=== PATIENT | male | born 1950 | race Caucasian/White ===

== ENCOUNTER 2017-04-30 12:57 | Outpatient (CLI) | payer MEDICARE ==
[2017-04-30 14:06] LABS: #Eosinphils 0.6 thou/uL (0.0-0.7); #Lymphocytes 1.2 thou/uL (1.20-3.40); #Monocytes 0.3 thou/uL (0.11-0.59); #Neutrophils 3.2 thou/uL (1.40-6.50); %Basophils 0.5 % (0.0-1.0); %Eosinophils 10.4 % (0.0-10.0); %Monocytes 6.3 % (0.0-10.0); %Neutrophils 59.9 % (42.0-75.0); Hemoglobin 12.5 g/dL (14.0-18.0); Mean Corpuscular HGB CONC 33.3 g/dL (32.0-36.0); Mean Corpuscular Hemoglobin 29.9 pg (27.0-31.0); Mean Corpuscular Volume 89.8 fl (80.0-94.0); Mean Platelet Volume 7.6 fL (7.4-10.4); Platelet Count 145 thou/uL (130-400); RBC Distribution Width 12.6 % (11.5-14.5); White Blood Cell (WBC) Count 5.4 thou/uL (4.8-10.8)
[2017-04-30 14:20] LABS: ALT (SGPT) 11 U/L (8-55); AST (SGOT) 20 U/L (5-34); Albumin 3.8 g/dL (3.4-4.8); Alkaline Phosphatase 53 U/L (40-150); Anion Gap 13 mmol/L (10-20); BUN (Urea Nitrogen) 15 mg/dL (8.4-25.7); Bilirubin, Direct 0.4 mg/dL (0.1-0.3); Calc. Creatinine Clearance 0 mL/min (70-130); Calcium 8.6 mg/dL (7.8-10.44); Carbon Dioxide 25 mmol/L (23-31); Cardiac Risk 3.2 (Less than 4.5); Chloride 105 mmol/L (98-107); Cholesterol 105 mg/dl (< 200 Desired); Estimated GFR-MDRD 88; Glucose 80 mg/dL (80-115); HDL Cholesterol 33 mg/dL (>60 Neg Risk); LDL Cholesterol, Calculated 58 mg/dL; Potassium 3.9 mmol/L (3.5-5.1); Protein, Total 5.8 g/dL (5.8-8.1); Sodium 139 mmol/L (136-145); Triglycerides 68 mg/dL (Less than 150)
[2017-04-30 14:44] LABS: Hemoglobin A1c 4.6 % (4.0-6.0)
== END 2017-04-30 12:58 | disposition home or self-care (01) ==
LOC: NAVSJIPCSP 12:57
PROVIDERS: ATTEND Family Medicine
DX: E78.00 Pure hypercholesterolemia, unspecified (principal); I10 Essential (primary) hypertension; D64.9 Anemia, unspecified; Z79.899 Other long term (current) drug therapy
CPT/HCPCS: 36415; 80048; 80061; 80076; 83036; 84443; 85025

== ENCOUNTER 2018-12-30 18:15 | Inpatient (IN) | payer MEDICARE ==
[2018-12-30 18:30] VITALS: BMI 27.1
[2018-12-30] MEDS ORDERED: Ondansetron ODT 4 MG TAB PO PRN (19:00)
[2018-12-30] MEDS ORDERED: Guaifenesin DM 100-10/5 ML UDCUP PO PRN (19:00)
[2018-12-30] MEDS: Atorvastatin Calcium 20 MG TAB PO SCH (20:40)
[2018-12-30] MEDS: Carvedilol 6.25 MG TAB PO SCH (20:40)
[2018-12-30] MEDS: Baclofen 10 MG TAB PO SCH (20:40)
[2018-12-30] MEDS: guaiFENesin ER 600 MG TAB PO SCH (20:40)
[2018-12-30] MEDS: Apixaban 5 MG TAB PO SCH (20:40)
[2018-12-30] MEDS ORDERED: Simvastatin 40 MG TAB PO SCH (21:00)
[2018-12-30 21:16] LABS: Bilirubin Negative (Negative); Blood, Urine Negative (Negative); Clarity Clear (Clear); Glucose, Urine (Dipstick) Negative (Negative); Leukocyte Negative (Negative); Nitrite Negative (Negative); Protein, Urine (Dipstick) Negative (Neg-Trace); Specific Gravity, Urine 1.015 (1.005-1.030); pH, Urine 7.5 (5.0-9.0)
[2018-12-30 21:23] LABS: Bacteria/HPF None Seen HPF (None Seen); RBC/HPF None Seen HPF (0-3); Squamous Epithelial 0-3 HPF (0-3); WBC/HPF None Seen HPF (0-3)
[2018-12-30] MEDS ORDERED: Nystatin Powder 15 GM BOT TOP SCH (21:30)
[2018-12-30] MEDS: Nystatin Powder 15 GM BOT TOP SCH (21:32)
--- NOTE | 2018-12-31 03:17 | HP ---
HISTORY OF PRESENT ILLNESS: Mr. Neves is a 68-year-old white male, who presented to [facility] Emergency Room on 12/23 with extreme weakness. He had a 1-day history of cough and 101.5 temperature. He is admitted to the hospital, found to be septic, started on IV antibiotics. He was seen in conjunction with Cardiology. He was found to not have anything growing in his blood cultures. Started on initially azithromycin. Eventually, he was transferred over to [facility] and has done much better. He has two more days of Levaquin left. This is presumably to treat either pneumonia or urinary tract infection. The patient was stabilized, actually doing much better, but is very weak and was transferred to [facility] for physical therapy and occupational therapy. PAST MEDICAL HISTORY: Significant for multiple medical problems including; 1. 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 2. Coronary artery disease with acute three-vessel disease post CABG. 3. Hypertension. 4. History of postoperative anemia with atrial fibrillation at that time. 5. History of kidney stones. 6. Arthritis. 7. Gastroesophageal reflux disease. 8. Hypercholesterolemia. 9. Hepatitis, twice in his life, type A from dirty pork in high school and type B from seafood in his early 30s. 10. The patient also has a history of GERD. 11. Allergic rhinitis. 12. Edema and skin breakdown in the past. PAST SURGICAL HISTORY: The patient does have a history of herniorrhaphy in 1989. Tonsillectomy and adenoidectomy as a child, heart catheterization, CABG x5 by Dr. Amado in 2008, and vasectomy. FAMILY HISTORY: Positive for the patient's father dying at age 78. He had skin cancer and Alzheimer disease. The patient's mother at age 82, she of CHF and coronary artery disease. The patient has siblings that are alive, but they have dementia, pacemakers. The patient has multiple sons are alive and are healthy. The patient's family history positive for diabetes, heart disease, hypertension, kidney stones, and cancer. MEDICATIONS: Prior home medications revealed the patient presently is on; 1. Plavix 75 mg a day. 2. Carvedilol 12.5 mg twice a day. 3. Digoxin 250 mcg daily. 4. Simvastatin 40 mg daily. 5. Colcrys 0.6 mg once a day. 6. Flomax 0.4 mg once a day. 7. Baclofen 10 mg one with milk or food three times a day p.r.n. 8. Metronidazole lotion p.r.n. 9. Doxycycline 100 mg once a day. 10. Tylenol 325 mg two tablets as needed q.6 hours. 11. Loratadine 10 mg daily. 12. Lotrisone cream p.r.n. 13. MiraLAX daily. 14. Synalar topically twice a day for severe psoriasis. Medicines transferred from [facility] include the following; 1. Tylenol 1000 mg q.6 hours p.r.n. 2. Norvasc 5 mg daily. 3. Eliquis 5 mg b.i.d. 4. Lipitor 20 mg at bedtime. 5. Baclofen 10 mg b.i.d. 6. Carvedilol 12.5 mg b.i.d. 7. Plavix 75 mg daily. 8. Lanoxin 0.25 mg daily. 9. Guaifenesin 600 mg b.i.d. 10. Robitussin DM 15 mL p.r.n. cough. 11. Levaquin 750 mg twice a day for 2 more days. 12. Claritin 10 mg daily. 13. Zofran p.r.n. vomiting. 14. Protonix 40 mg daily. 15. Flomax 0.4 mg daily. SOCIAL HISTORY: Reveals the patient is a nonsmoker and he does not drink any alcohol. 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 He rarely has any caffeine. He does exercise, walks with a walker 3 times a day. ALLERGIES: THE PATIENT IS ALLERGIC TO; 1. GENERIC COLCHICINE. 2. MELOXICAM. 3. ALEVE. 4. ERYTHROMYCIN. 5. REGLAN. 6. BIAXIN. REVIEW OF SYSTEMS: The patient denies any recent fevers, chills, night sweats, or headaches. He does feel weak and fatigued, is unable to get up and walk as well as he has. He denies any change in his eyes or hearing. He denies any significant increased rhinorrhea. He does have occasional dry hacky type cough, is nonproductive. Denies any dyspnea on exertion, chest pain, orthopnea, or claudication. Denies nausea, vomiting, diarrhea, constipation, melena, or hematochezia. Denies any nocturia, urgency, frequency, dysuria, or significant incontinence. Musculoskeletal armenta, he denies any significant joint pains or stiffness, just weakness. He has residual fine movement restrictions ever since his CVA. Denies any heat or cold intolerances at this time. PHYSICAL EXAMINATION: GENERAL: This is a well-developed, well-nourished, rather tall, thin white male, in no apparent distress at this time. HEENT: Normocephalic, nontraumatic cranium. Pupils equally round and reactive. Extraocular movements are intact. Nose and throat are slightly dry. NECK: Supple without masses, nodes, or bruits. CHEST: Clear to auscultation. No rales, rhonchi, wheezes, or cough is heard. HEART: Reveals a regular rate and rhythm at this time. No murmurs, gallops, or rubs are noted. ABDOMEN: Soft, nontender without organomegaly. Normal bowel sounds are noted. No rebound or guarding is noted. : Deferred. EXTREMITIES: Reveal generalized weakness with increased weakness on the right side from the residual CVA. ASSESSMENT: 1. Paroxysmal atrial fibrillation, sinus rhythm now. 2. Pneumonia. 3. BPH. 4. Coronary artery disease. 5. Recent elevated troponin thought to be strain. 6. Gout. 7. Hyperlipidemia. 8. Hypertension. 9. Upper respiratory infection. 10. Gastroesophageal reflux disease. 11. Paroxysmal atrial fibrillation, flutter. 12. Leukopenia. PLAN: 1. The patient was seen by Dr. Weiner, and he recommended discontinuing either the aspirin or the Plavix and continue with one of the other along with Eliquis 5 b.i.d. Continue to monitor the patient's WBC. 2. Continue to monitor the patient's heart rate. 3. We will start with Physical Therapy and Occupational Therapy to increase the patient's strength and stamina. 4. Continue to monitor the patient's blood pressure closely. 5. Monitor the patient for any gout flares. 6. As the patient improves, we will formulate a discharge to home plan. Job ID: [id number]
[2018-12-31 05:24] LABS: #Eosinphils 0.1 thou/uL (0.0-0.7); #Lymphocytes 1.1 thou/uL (1.20-3.40); #Monocytes 0.5 thou/uL (0.11-0.59); #Neutrophils 3.6 thou/uL (1.40-6.50); %Basophils 0.5 % (0.0-1.0); %Eosinophils 1.9 % (0.0-10.0); %Lymphocytes 20.3 % (21.0-51.0); %Monocytes 8.7 % (0.0-10.0); %Neutrophils 68.6 % (42.0-75.0); Hemoglobin 11.2 g/dL (14.0-18.0); Mean Corpuscular HGB CONC 33.9 g/dL (32.0-36.0); Mean Corpuscular Hemoglobin 30.2 pg (27.0-31.0); Mean Platelet Volume 6.8 fL (7.4-10.4); Platelet Count 162 thou/uL (130-400); RBC Distribution Width 12.6 % (11.5-14.5); Red Blood Cell (RBC) Count 3.72 mill/uL (4.70-6.10); White Blood Cell (WBC) Count 5.3 thou/uL (4.8-10.8)
[2018-12-31 05:42] LABS: Digoxin 0.91 ng/mL (0.8-2.0)
[2018-12-31 05:47] LABS: ALT (SGPT) 43 U/L (8-55); AST (SGOT) 40 U/L (5-34); Albumin 3.3 g/dL (3.4-4.8); Alkaline Phosphatase 54 U/L (40-150); Anion Gap 13 mmol/L (10-20); BUN (Urea Nitrogen) 11 mg/dL (8.4-25.7); Bilirubin, Total 0.9 mg/dL (0.2-1.2); Calc. Creatinine Clearance 138 mL/min (70-130); Calcium 9.4 mg/dL (7.8-10.44); Carbon Dioxide 25 mmol/L (23-31); Chloride 102 mmol/L (98-107); Estimated GFR-MDRD Greater than 90; Globulin 2.6 g/dL (2.4-3.5); Glucose 85 mg/dL (80-115); Protein, Total 5.9 g/dL (5.8-8.1); Sodium 136 mmol/L (136-145)
[2018-12-31] MEDS: Amlodipine 5 MG TAB PO SCH (09:02)
[2018-12-31] MEDS: guaiFENesin ER 600 MG TAB PO SCH ×2 (09:03→21:32)
[2018-12-31] MEDS: Clopidogrel Bisulfate 75 MG TAB PO SCH (09:03)
[2018-12-31] MEDS: Baclofen 10 MG TAB PO SCH ×2 (09:03→21:31)
[2018-12-31] MEDS: Loratadine 10 MG TAB PO SCH (09:05)
[2018-12-31] MEDS: Digoxin 0.125 MG TAB PO SCH (09:05)
[2018-12-31] MEDS: Tamsulosin HCl 0.4 MG CAP PO SCH (09:05)
[2018-12-31] MEDS: Carvedilol 6.25 MG TAB PO SCH ×2 (09:06→21:31)
[2018-12-31] MEDS: Apixaban 5 MG TAB PO SCH ×2 (09:06→21:32)
[2018-12-31] MEDS: Acetaminophen 500 MG TAB PO PRN (09:23)
--- NOTE | 2018-12-31 11:35 | PRG ---
DATE OF SERVICE: 12/31/2018 Mr. Neves is a very pleasant 68-year-old white male, who presents to the [facility] on December 23, with extreme weakness. He had a 1-day history of cough and 101.5 temperature. He was found to be septic and started on IV antibiotics. He did have some paroxysmal atrial fibrillation, and was seen in conjunction with Cardiology. He was found to have negative blood cultures. Initially started on azithromycin and later has been transferred to [facility]. He is doing much better, and he has today and tomorrow for those two medications. The patient was treated for pneumonia. He is extremely weak where as he was previously walking with assistance. Now, he is unable to get out of bed. He was transferred to [facility] for physical therapy and occupational therapy. SUBJECTIVE: The patient states he slept well last night, had a good breakfast this morning. States he is still feeling really pretty weak and is not sure how much therapy can do. I told him that they would have any evaluations today to see how well he can do and then progress from there. OBJECTIVE: VITAL SIGNS: Today reveal blood pressure this morning 138/69, pulse 72, respirations 22, O2 saturation 93% on room air, and T-max 97.9. PHYSICAL EXAMINATION: GENERAL: This is a well-developed, well-nourished, very pleasant 68-year-old white male, in no apparent distress at this time. HEENT: Normocephalic and nontraumatic cranium. Pupils are equal, round, reactive. Extraocular movements are intact. Nose and throat are still slightly dry. NECK: Supple without masses, nodes, or bruits. CHEST: Clear to auscultation. No rales, rhonchi, wheezes, or cough is heard. HEART: Reveals a regular rate and rhythm with no murmurs, gallops, or rubs are noted. ABDOMEN: Soft, nontender without organomegaly. Normal bowel sounds are noted in all 4 quadrants. No rebound or guarding is noted. : Deferred. EXTREMITIES: Reveal generalized weakness. The patient continues to have increased weakness on the right side from his residual cerebrovascular accident. ASSESSMENT: 1. Paroxysmal atrial fibrillation, now sinus rhythm this morning. 2. Pneumonia. 3. Benign prostatic hyperplasia. 4. Coronary artery disease. 5. Critical illness myopathy. 6. Recent elevated troponin thought to be strain. 7. Gout. 8. Hyperlipidemia. 9. Hypertension. 10. Upper respiratory tract infection. 11. Gastroesophageal reflux disease. 12. Leukopenia. 13. Generalized weakness. PLAN: 1. We will start the patient on physical therapy, occupational therapy after evaluation today. 2. Continue to monitor the patient's blood pressure closely. 3. Continue the patient's Levaquin for another day until tomorrow. 4. Monitor the patient reflux. 5. Monitor the patient for atrial fibrillation and atrial flutter. 6. Lab work done this morning, presently pending, but was returned as normal. 7. Monitor the patient for any gout flares. 8. Continue with Plavix and Eliquis per Dr. Weiner's recommendation. 9. Physical therapy and occupational therapy. Job ID: [id number]
[2018-12-31] MEDS: Atorvastatin Calcium 20 MG TAB PO SCH (21:32)
[2018-12-31] MEDS: Nystatin Powder 15 GM BOT TOP SCH (21:32)
[2019-01-01] MEDS: Acetaminophen 500 MG TAB PO PRN ×2 (09:13→21:09)
[2019-01-01] MEDS: Clopidogrel Bisulfate 75 MG TAB PO SCH (09:13)
[2019-01-01] MEDS: Apixaban 5 MG TAB PO SCH ×2 (09:13→21:09)
[2019-01-01] MEDS: Amlodipine 5 MG TAB PO SCH (09:13)
[2019-01-01] MEDS: Nystatin Powder 15 GM BOT TOP SCH ×2 (09:13→21:09)
[2019-01-01] MEDS: Digoxin 0.125 MG TAB PO SCH (09:14)
[2019-01-01] MEDS: Carvedilol 6.25 MG TAB PO SCH ×2 (09:14→21:09)
[2019-01-01] MEDS: Baclofen 10 MG TAB PO SCH ×2 (09:14→21:09)
[2019-01-01] MEDS: Loratadine 10 MG TAB PO SCH (09:14)
[2019-01-01] MEDS: Tamsulosin HCl 0.4 MG CAP PO SCH (09:14)
[2019-01-01] MEDS: guaiFENesin ER 600 MG TAB PO SCH ×2 (09:14→21:09)
--- NOTE | 2019-01-01 10:27 | PRG ---
DATE OF SERVICE: 01/01/2019 SUBJECTIVE: Mr. Neves is a very pleasant, 68-year-old white male, who presented to the [facility] ER on December 23 with extreme weakness. He was found to have a temperature of 101.5. He was found to be septic and started on IV antibiotics. He did have some paroxysmal atrial fib along with that, and was seen in conjunction with Cardiology and Infectious Disease. He was found to have negative blood cultures. Initially, he was started on azithromycin, and then, later was transferred over to [facility]. He is finishing his Levaquin today, and he is doing much better. He is still extremely weak and barely able to stand. He states he did stand a little bit yesterday and take a couple of steps. He is eating well, and he is not constipated. OBJECTIVE: VITAL SIGNS: Reveal blood pressure this morning is 138/69, pulse is 73, respirations are 16, O2 saturation is 92% to 96% on room air, and T-max 97.7. GENERAL: This is a well-developed, well-nourished, very tall, but thin 68-year-old white male, in no apparent distress at this time. HEENT: Reveals normocephalic and nontraumatic cranium. Pupils equally round and reactive. Extraocular movements are intact. Nose and throat are still little dry. NECK: Supple without masses, nodes, or bruits. CHEST: Clear to auscultation. No rales. No rhonchi. No wheezes or cough is heard. HEART: Reveals a regular rate and rhythm without murmurs, gallops, or rubs. ABDOMEN: Soft, nontender without organomegaly. Normal bowel sounds are noted in all 4 quadrants. No rebound or guarding is noted. : Deferred. EXTREMITIES: Reveal generalized weakness. The patient does complain of some left ankle pain today, but on inspection, it is not swollen, it is not red, it is not warm, and it is not significantly painful with deep palpation. The patient continues to have some right-sided weakness secondary to his old CVA in 2011. ASSESSMENT: 1. Pneumonia, resolving. 2. Paroxysmal atrial fibrillation, now in sinus rhythm. 3. Benign prostatic hyperplasia. 4. Coronary artery disease. 5. Critical illness myopathy. 6. Recently elevated troponin, thought to be due to cardiac strain. 7. Gout. 8. Hyperlipidemia. 9. Hypertension. 10. Gastroesophageal reflux disease. 11. Leukopenia. 12. Generalized weakness. PLAN: 1. We will continue with his physical therapy to help get him back to his previous strength and stamina. 2. Continue to monitor the patient's blood pressure closely and adjust medications as needed. 3. Today is the patient's last day of Levaquin. We will stop it after his dose today. 4. Continue to monitor the patient for reflux. 5. Continue to monitor the patient's heart rate for AFib and atrial flutter. 6. The patient's lab results are all normal, most likely we will repeat that on Friday. 7. We will monitor the patient for any gout flares. 8. Continue Plavix and Eliquis per Dr. Weiner's recommendation. 9. Continue physical therapy and occupational therapy. Job ID: [id number]
[2019-01-01] MEDS: Atorvastatin Calcium 20 MG TAB PO SCH (21:09)
[2019-01-02] MEDS: Baclofen 10 MG TAB PO SCH ×2 (08:25→21:10)
[2019-01-02] MEDS: Digoxin 0.125 MG TAB PO SCH (08:25)
[2019-01-02] MEDS: Loratadine 10 MG TAB PO SCH (08:25)
[2019-01-02] MEDS: Clopidogrel Bisulfate 75 MG TAB PO SCH (08:26)
[2019-01-02] MEDS: Apixaban 5 MG TAB PO SCH ×2 (08:26→21:10)
[2019-01-02] MEDS: Carvedilol 6.25 MG TAB PO SCH ×2 (08:26→21:11)
[2019-01-02] MEDS: Tamsulosin HCl 0.4 MG CAP PO SCH (08:26)
[2019-01-02] MEDS: guaiFENesin ER 600 MG TAB PO SCH ×2 (08:26→21:10)
[2019-01-02] MEDS: Amlodipine 5 MG TAB PO SCH (08:26)
[2019-01-02] MEDS: Nystatin Powder 15 GM BOT TOP SCH ×2 (08:28→21:11)
[2019-01-02] MEDS: Acetaminophen 500 MG TAB PO PRN ×2 (08:29→16:57)
--- NOTE | 2019-01-02 08:55 | PRG ---
DATE OF SERVICE: 01/02/2019 SUBJECTIVE: Mr. Neves is a very pleasant 68-year-old white male, who presented to the ER at [facility] on December 23 with extreme weakness. He was found to have a temperature of 101.5, and he was septic. He was started on IV antibiotics. While he was ill, he had paroxysmal atrial fibrillation. He was seen in consult with Infectious Disease and Cardiology. He had negative blood cultures and was started on azithromycin initially and that was later transferred over to [facility]. He seems to be doing very well and he feels much better. He is able to walk a little bit, but he typically walks 300+ feet. OBJECTIVE: VITAL SIGNS: Today reveal blood pressure 131/61, pulse 74, respirations 18, O2 saturation of 97% on room air, and T-max 96.7. GENERAL: This is a well-developed, well-nourished, thin white male, in no apparent distress at this time. HEENT: Normocephalic and nontraumatic cranium. Pupils are equally round and reactive. Extraocular movements are intact. Nose and throat are slightly dry. NECK: Supple without masses, nodes, or bruits. CHEST: Clear to auscultation. No rales, rhonchi, wheezes, or cough is heard. HEART: Reveals a regular rate and rhythm without murmurs, gallops, or rubs. ABDOMEN: Soft, nontender without organomegaly. Normal bowel sounds are noted in all 4 quadrants. No rebound or guarding is noted. : Deferred. EXTREMITIES: Reveal no clubbing, cyanosis, or edema. The patient has no ankle pain today. The patient does have continued right-sided weakness secondary to his old CVA. ASSESSMENT: 1. Pneumonia, resolving. 2. Paroxysmal atrial fibrillation, continues in sinus rhythm at this time. 3. Benign prostatic hyperplasia. 4. Coronary artery disease. 5. Critical illness myopathy. 6. Recently elevated troponin thought to be due to cardiac strain. 7. Gout. 8. Hyperlipidemia. 9. Hypertension. 10. Gastroesophageal reflux disease. 11. Leukopenia. 12. Generalized weakness. PLAN: 1. The patient thinks his gout is coming back. We will start him on name brand colchicine 0.6 once a day. 2. Continue to monitor the patient's blood pressure closely and adjust medications. 3. The patient has finished his Levaquin. 4. Continue to monitor the patient for reflux. 5. Continue to monitor the patient's heart rate for atrial fibrillation and rapid ventricular response. 6. Repeat lab on Friday. 7. Monitor the patient for gout flares. 8. Continue Plavix and Eliquis per Dr. Weiner's recommendation. 9. Continue PT and OT. Job ID: [id number]
[2019-01-02] MEDS: Colchicine 0.6 MG TAB PO SCH (09:59)
[2019-01-02] MEDS: Atorvastatin Calcium 20 MG TAB PO SCH (21:10)
[2019-01-03] MEDS: Nystatin Powder 15 GM BOT TOP SCH ×2 (08:57→21:03)
[2019-01-03] MEDS: Loratadine 10 MG TAB PO SCH (08:58)
[2019-01-03] MEDS: Colchicine 0.6 MG TAB PO SCH (08:58)
[2019-01-03] MEDS: Apixaban 5 MG TAB PO SCH ×2 (08:58→21:01)
[2019-01-03] MEDS: guaiFENesin ER 600 MG TAB PO SCH ×2 (08:58→21:01)
[2019-01-03] MEDS: Digoxin 0.125 MG TAB PO SCH (08:58)
[2019-01-03] MEDS: Baclofen 10 MG TAB PO SCH ×2 (08:59→21:01)
[2019-01-03] MEDS: Carvedilol 6.25 MG TAB PO SCH ×2 (08:59→21:02)
[2019-01-03] MEDS: Acetaminophen 500 MG TAB PO PRN ×3 (08:59→21:02)
[2019-01-03] MEDS: Amlodipine 5 MG TAB PO SCH (08:59)
[2019-01-03] MEDS: Tamsulosin HCl 0.4 MG CAP PO SCH (08:59)
[2019-01-03] MEDS: Clopidogrel Bisulfate 75 MG TAB PO SCH (08:59)
--- NOTE | 2019-01-03 10:04 | PRG ---
DATE OF SERVICE: 01/03/2019 SUBJECTIVE: Mr. Neves is a very pleasant 68-year-old white male, who presented to the emergency room at [facility] on December 23, with extreme weakness. He was found to have a temperature of 101.5, and he was noted to be septic. He was started on IV antibiotics. While he was in the hospital, he had paroxysmal atrial fibrillation. He was seen in consultation with Infectious Disease and Cardiology. He had negative blood cultures. He was started on azithromycin initially and then was transferred to [facility]. He was doing very well and was transferred to [facility] for physical therapy and occupational therapy to increase his strength and stamina. OBJECTIVE: VITAL SIGNS: Today reveal his blood pressure this morning was 144/67, pulse 66, respirations 18, O2 saturation 95% on room air, T-max 98.2. GENERAL: This is a well-developed, well-nourished, very pleasant, 68-year-old, white male, in no apparent distress at this time. HEENT: Reveals normocephalic and nontraumatic cranium. The pupils are equally round and reactive. Extraocular movements are intact. Nose and throat are clear. NECK: Supple without masses, nodes, or bruits. CHEST: Clear to auscultation. No rales, rhonchi, or wheezes are heard. HEART: Reveals a regular rate and rhythm without murmurs, gallops, or rubs. ABDOMEN: Soft and nontender without organomegaly. Normal bowel sounds are noted in all 4 quadrants. No rebound or guarding is noted. : Deferred. EXTREMITIES: Reveal no clubbing, cyanosis, or edema. The patient denies any ankle pain this morning. He does continue to have some right-sided weakness secondary to an old CVA. ASSESSMENT: 1. Pneumonia, resolving. 2. Paroxysmal atrial fibrillation, continues in sinus rhythm at this time. 3. BPH. 4. Coronary artery disease. 5. Critical illness myopathy. 6. Recently elevated troponin, thought to be due to cardiac strain. 7. Gout. 8. Hyperlipidemia. 9. Hypertension. 10. Gastroesophageal reflux disease. 11. Leukopenia. 12. Generalized weakness. PLAN: 1. The patient was started back on his name brand colchicine once a day. 2. Continue to monitor the patient's blood pressure closely and adjust medications as needed. 3. The patient will continue on his Levaquin until he is finished. 4. Continue to monitor the patient for reflux. 5. Continue to monitor the patient's heart rate for atrial fibrillation and RVR. 6. Repeat labs on Friday. 7. Monitor the patient for gout flares. 8. Continue Plavix and Eliquis per Dr. Weiner's recommendation. 9. Continue PT and OT. Job ID: [id number]
[2019-01-03] MEDS: Atorvastatin Calcium 20 MG TAB PO SCH (21:01)
[2019-01-04] MEDS: Amlodipine 5 MG TAB PO SCH (08:44)
[2019-01-04] MEDS: Carvedilol 6.25 MG TAB PO SCH ×2 (08:45→20:48)
[2019-01-04] MEDS: Baclofen 10 MG TAB PO SCH ×2 (08:45→20:48)
[2019-01-04] MEDS: Apixaban 5 MG TAB PO SCH ×2 (08:45→20:48)
[2019-01-04] MEDS: Clopidogrel Bisulfate 75 MG TAB PO SCH (08:46)
[2019-01-04] MEDS: guaiFENesin ER 600 MG TAB PO SCH ×2 (08:47→20:48)
[2019-01-04] MEDS: Colchicine 0.6 MG TAB PO SCH (08:47)
[2019-01-04] MEDS: Digoxin 0.125 MG TAB PO SCH (08:47)
[2019-01-04] MEDS: Nystatin Powder 15 GM BOT TOP SCH ×2 (08:48→20:50)
[2019-01-04] MEDS: Tamsulosin HCl 0.4 MG CAP PO SCH (08:48)
[2019-01-04] MEDS: Loratadine 10 MG TAB PO SCH (08:48)
[2019-01-04] MEDS: Acetaminophen 500 MG TAB PO PRN ×2 (08:49→18:27)
[2019-01-04] MEDS ORDERED: traMADol HCl 50 MG TAB PO PRN (09:46)
--- NOTE | 2019-01-04 10:42 | PRG ---
DATE OF SERVICE: 01/04/2019 SUBJECTIVE: Mr. Neves is a 68-year-old white male, who presented to the emergency room at [facility] with extreme weakness. He was septic and started on IV antibiotics. He also had paroxysmal atrial fibrillation while he was in the hospital. He was seen in consultation by Infectious Disease and Cardiology. He had negative blood cultures. When he is stabilized, started on azithromycin and switched over to Levaquin. He is transferred to [facility] for PT/OT to increase his strength and stamina since he is so weak. OBJECTIVE: VITAL SIGNS: Today reveal blood pressure 143/74, pulse 70, respirations 18, O2 saturation 94% on room air, T-max 98. GENERAL: This is a well-developed, well-nourished, very pleasant white male, who states he has quite a bit of gout pain today. He did start his colchicine yesterday. He has already taken a second pill today. He states he feels a little bit better than today, but he is hurting so bad, and then he could not do much therapy this morning. Mainly it is in his right knee. Reveals a well-developed, well-nourished, pleasant 68-year-old white male, in . HEENT: Reveals normocephalic and nontraumatic cranium. Pupils are equally round and reactive. Extraocular movements are intact. Nose and throat are clear. NECK: Supple without masses, nodes, or bruits. CHEST: Clear to auscultation. No rales, rhonchi, wheezes are heard. HEART: Reveals a regular rate and rhythm without murmurs, gallops, or rubs. ABDOMEN: Slightly obese, soft, nontender without organomegaly. Normal bowel sounds are noted in all 4 quadrants. No rebound or guarding is noted. : Deferred. EXTREMITIES: Reveal right knee somewhat warm, slightly swollen, and the patient complains of 6/10 pain. He has asked for something a little more substantial in the plain Tylenol. We will give him some tramadol 50+ Tylenol 500 for his pain. The patient also has some right-sided weakness secondary to old CVA. ASSESSMENT: 1. Pneumonia, resolving. 2. Paroxysmal atrial fibrillation, continues in sinus rhythm at this time. 3. Benign prostatic hyperplasia. 4. Coronary artery disease. 5. Critical illness myopathy. 6. Previously elevated troponin thought to be due to cardiac strain. 7. Gout. 8. Hyperlipidemia. 9. Hypertension. 10. Gastroesophageal reflux disease. 11. Leukopenia. 12. Generalized weakness. PLAN: 1. The patient will continue on his brand-name colchicine 0.6 mg daily. 2. Continue to monitor the patient's blood pressure closely. 3. Continue to monitor the patient on Levaquin until it is finished. 4. Monitor the patient for reflux. 5. Continue colchicine 0.6 brand name daily. 6. Monitor the patient's paroxysmal atrial fibrillation and RVR. 7. Monitor the patient for further gout flares. 8. Continue Plavix and Eliquis per Dr. Weiner's recommendation. 9. Continue PT and OT. Job ID: [id number]
[2019-01-04] MEDS: traMADol HCl 50 MG TAB PO PRN ×2 (16:17→20:47)
[2019-01-04] MEDS: Atorvastatin Calcium 20 MG TAB PO SCH (20:48)
[2019-01-05] MEDS: Baclofen 10 MG TAB PO SCH ×2 (08:34→21:10)
[2019-01-05] MEDS: Apixaban 5 MG TAB PO SCH ×2 (08:34→21:09)
[2019-01-05] MEDS: Amlodipine 5 MG TAB PO SCH (08:34)
[2019-01-05] MEDS: Carvedilol 6.25 MG TAB PO SCH ×2 (08:35→21:10)
[2019-01-05] MEDS: Clopidogrel Bisulfate 75 MG TAB PO SCH (08:35)
[2019-01-05] MEDS: Digoxin 0.125 MG TAB PO SCH (08:36)
[2019-01-05] MEDS: Colchicine 0.6 MG TAB PO SCH (08:36)
[2019-01-05] MEDS: guaiFENesin ER 600 MG TAB PO SCH ×2 (08:36→21:10)
[2019-01-05] MEDS: traMADol HCl 50 MG TAB PO PRN ×2 (08:37→21:10)
[2019-01-05] MEDS: Tamsulosin HCl 0.4 MG CAP PO SCH (08:37)
[2019-01-05] MEDS: Nystatin Powder 15 GM BOT TOP SCH ×2 (08:37→21:13)
[2019-01-05] MEDS: Loratadine 10 MG TAB PO SCH (08:37)
--- NOTE | 2019-01-05 10:18 | PRG ---
DATE OF SERVICE: 01/05/2019 SUBJECTIVE: Mr. Neves is a very pleasant 68-year-old white male who presented to [facility]. He had paroxysmal atrial fib along with pneumonia and urinary tract infection. Eventually, he was stabilized and transferred to [facility] on oral medications. The patient states he had a bad day yesterday, but he feels much better today. His gout started acting out yesterday, and he had to start his Colcrys. He states he feels much better today. He is only able to participate in therapy approximately 18 minutes yesterday. States his pain was much improved. He is looking forward to getting therapy. He wants to become much more independent, so he can get back to his walking with his walker wherever he wants to go. OBJECTIVE: VITAL SIGNS: Today, reveal blood pressure 137/67, pulse 65, respirations 18, O2 saturation is 92% on room air, and T-max 97.9. GENERAL: This is a well-developed, well-nourished, very pleasant 68-year-old white male, in no apparent distress at this time. He states his gout is much improved, but is still slightly there. He did start his colchicine. HEENT: Reveals normocephalic and nontraumatic cranium. Pupils are equal, round, and reactive. Extraocular movements are intact. Nose and throat are slightly dry today. NECK: Supple without masses, nodes, or bruits. CHEST: Clear to auscultation. No rales, no rhonchi. No wheezes, and no cough is heard. HEART: Reveals a regular rate and rhythm without murmurs, gallops, or rubs. ABDOMEN: Soft, nontender without organomegaly. Normal bowel sounds are noted in all 4 quadrants. No rebound or guarding was noted. : Exam is deferred. EXTREMITIES: Reveal the patient's right knee bothers him more than the other places and is much better about a 3/10. He did take tramadol with Tylenol. It worked well. He is also on his colchicine daily. The patient also has some right-sided weakness secondary to his old CVA. ASSESSMENT: 1. Pneumonia, resolving. 2. Paroxysmal atrial tachycardia, continues in sinus rhythm at this time. 3. Benign prostatic hypertrophy. 4. Coronary artery disease. 5. Critical illness myopathy. 6. Previously elevated troponin, thought to be strain. 7. Gout. 8. Hyperlipidemia. 9. Hypertension. 10. Gastroesophageal reflux disease. 11. Leukopenia. 12. Generalized weakness. PLAN: 1. The patient will continue on his brand name of colchicine 0.6 daily. 2. The patient will continue with Tylenol with tramadol p.r.n., severe pain. 3. Continue to monitor the patient's blood pressure closely. Continue to monitor the patient for reflux. 4. Monitor the patient for PAT. 5. Monitor the patient for gout flares. 6. Continue Plavix and Eliquis per Dr. Weiner's recommendation. 7. Continue physical therapy and occupational therapy. Job ID: [id number]
[2019-01-05] MEDS: Atorvastatin Calcium 20 MG TAB PO SCH (21:10)
[2019-01-06] MEDS: traMADol HCl 50 MG TAB PO PRN (08:47)
[2019-01-06] MEDS: Loratadine 10 MG TAB PO SCH (08:48)
[2019-01-06] MEDS: Baclofen 10 MG TAB PO SCH ×2 (08:48→20:13)
[2019-01-06] MEDS: Digoxin 0.125 MG TAB PO SCH (08:48)
[2019-01-06] MEDS: Acetaminophen 500 MG TAB PO PRN (08:48)
[2019-01-06] MEDS: Carvedilol 6.25 MG TAB PO SCH ×2 (08:48→20:13)
[2019-01-06] MEDS: Amlodipine 5 MG TAB PO SCH (08:48)
[2019-01-06] MEDS: Tamsulosin HCl 0.4 MG CAP PO SCH (08:48)
[2019-01-06] MEDS: Apixaban 5 MG TAB PO SCH ×2 (08:49→20:12)
[2019-01-06] MEDS: guaiFENesin ER 600 MG TAB PO SCH ×2 (08:49→20:13)
[2019-01-06] MEDS: Clopidogrel Bisulfate 75 MG TAB PO SCH (08:49)
[2019-01-06] MEDS: Nystatin Powder 15 GM BOT TOP SCH ×2 (08:50→20:13)
[2019-01-06] MEDS: Colchicine 0.6 MG TAB PO SCH (08:50)
--- NOTE | 2019-01-06 16:11 | PRG ---
DATE OF SERVICE: 01/06/2019 SUBJECTIVE: Mr. Neves is a very pleasant 68-year-old white male, who was septic. He had altered mental status and he had developed paroxysmal atrial fibrillation with pneumonia and urinary tract infection. He was stabilized at [facility] and gradually transferred to [facility] for oral medications and physical therapy and occupational therapy. The patient states he is doing a bit better. Because his gout is not bothering him nearly as much and he is able to walk this morning to participate this morning and physical therapy for 48 minutes for 18 minutes. He is somewhat better, but he continues to need more therapy. OBJECTIVE: VITAL SIGNS: Today reveal blood pressure 143/69, pulse 69, respirations 18, O2 saturation not listed on room air. T-max 98.3. PHYSICAL EXAMINATION: GENERAL: This is a well-developed, well-nourished, very tall, 68-year-old white male, in no apparent distress at this time. HEENT: Normocephalic, nontraumatic cranium. Pupils equal, round, and reactive. Extraocular movements are intact. Nose and throat are slightly dry. NECK: Supple without masses, nodes, or bruits. CHEST: Clear to auscultation. No rales, rhonchi, wheezes, or cough is noted. HEART: Reveals a regular rate and rhythm without murmurs, gallops, or rubs. ABDOMEN: Soft, nontender without organomegaly. Normal bowel sounds are noted in all 4 quadrants. No rebound or guarding is noted. : Deferred. EXTREMITIES: Reveal the patient's right knee still bothers him but is much improved. He is taking Tylenol with tramadol only p.r.n. He is on colchicine daily. 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 ASSESSMENT: 1. Pneumonia, resolved. 2. Paroxysmal atrial tach, presently in sinus rhythm. 3. Benign prostatic hyperplasia. 4. Coronary artery disease. 5. Critical illness myopathy. 6. Previous elevated troponin thought to be strain. 7. Gout, which is active at this time. 8. Hyperlipidemia. 9. Hypertension, stable. 10. Gastroesophageal reflux. 11. Leukopenia. 12. Generalized weakness. PLAN: 1. Continue name brand colchicine 0.6 daily. 2. Continue to monitor the patient's blood pressure closely. 3. Continue to monitor the patient for PAT. 4. Continue to treat the patient's gouty flares. 5. Continue Plavix and Eliquis per Dr. Weiner's recommendation. 6. Continue physical therapy and occupational therapy. Job ID: [id number]
[2019-01-06] MEDS ORDERED: Bisacodyl 10 MG SUPP PR SCH (19:45)
[2019-01-06] MEDS: Atorvastatin Calcium 20 MG TAB PO SCH (20:12)
[2019-01-07] MEDS: Clopidogrel Bisulfate 75 MG TAB PO SCH (08:40)
[2019-01-07] MEDS: Digoxin 0.125 MG TAB PO SCH (08:40)
[2019-01-07] MEDS: Polyethylene Glycol 3350 17 GM Packet PO SCH (08:40)
[2019-01-07] MEDS: Loratadine 10 MG TAB PO SCH (08:40)
[2019-01-07] MEDS: Tamsulosin HCl 0.4 MG CAP PO SCH (08:40)
[2019-01-07] MEDS: Acetaminophen 500 MG TAB PO PRN (08:41)
[2019-01-07] MEDS: Baclofen 10 MG TAB PO SCH ×2 (08:41→20:31)
[2019-01-07] MEDS: traMADol HCl 50 MG TAB PO PRN (08:41)
[2019-01-07] MEDS: Carvedilol 6.25 MG TAB PO SCH ×2 (08:41→20:31)
[2019-01-07] MEDS: Apixaban 5 MG TAB PO SCH ×2 (08:41→20:30)
[2019-01-07] MEDS: guaiFENesin ER 600 MG TAB PO SCH ×2 (08:41→20:31)
[2019-01-07] MEDS: Amlodipine 5 MG TAB PO SCH (08:41)
[2019-01-07] MEDS: Nystatin Powder 15 GM BOT TOP SCH ×2 (08:43→20:31)
[2019-01-07] MEDS: Colchicine 0.6 MG TAB PO SCH (08:43)
--- NOTE | 2019-01-07 13:16 | PRG ---
DATE OF SERVICE: 01/07/2019 SUBJECTIVE: Mr. Neves is a very pleasant 68-year-old white male, who became septic and had altered mental status. He was seen at [facility] and admitted. While he was septic, he developed paroxysmal atrial fibrillation with pneumonia. He gradually improved and stabilized and was transferred to [facility] for PT and OT and pain management. The patient states his knee feels a little bit better, although still hurts when he stands on it. It is from his gout, that he thinks is getting much better. He has no other complaints today. OBJECTIVE: VITAL SIGNS: Today reveal blood pressure 127/71, pulse 73, respirations 16, O2 saturation 95% on room air, and T-max 97.4. GENERAL: This is a well-developed, well-nourished, tall, thin white male, in no apparent distress at this time. HEENT: Normocephalic and nontraumatic cranium. Pupils equal, round, and reactive. Extraocular movements intact. Nose and throat are slightly dry, but clear. NECK: Supple without masses, nodes, or bruits. CHEST: Clear to auscultation. No rales, rhonchi, wheezes, or cough was heard. HEART: Reveals a regular rate and rhythm without murmurs, gallops, or rubs. ABDOMEN: Soft and nontender without organomegaly. Normal bowel sounds seen in all 4 quadrants. No rebound or guarding is noted. : Deferred. EXTREMITIES: No clubbing, cyanosis, or edema. ASSESSMENT: 1. Pneumonia, resolved. 2. Paroxysmal atrial tachycardia, of which the patient is presently in sinus rhythm. 3. Benign prostatic hypertrophy. 4. Coronary artery disease. 5. Critical illness myopathy. 6. Gout, which is active at this time. 7. Previously elevated troponin, thought to be strain. 8. Hyperlipidemia. 9. Hypertension, stable. 10. Gastroesophageal reflux disease. 11. Leukopenia. 12. Generalized weakness. PLAN: 1. Continue brand-name colchicine 0.6 mg daily. 2. Continue to monitor the patient's blood pressure closely. 3. Monitor the patient for paroxysmal atrial tachycardia. 4. Continue to treat the patient's gouty flares. 5. Continue Plavix and Eliquis per Dr. Weiner's recommendations. 6. Continue physical therapy and occupational therapy. Job ID: [id number]
[2019-01-07] MEDS: Atorvastatin Calcium 20 MG TAB PO SCH (20:30)
[2019-01-08] MEDS: Baclofen 10 MG TAB PO SCH ×2 (08:41→21:05)
[2019-01-08] MEDS: Digoxin 0.125 MG TAB PO SCH (08:41)
[2019-01-08] MEDS: Tamsulosin HCl 0.4 MG CAP PO SCH (08:42)
[2019-01-08] MEDS: guaiFENesin ER 600 MG TAB PO SCH ×2 (08:42→21:05)
[2019-01-08] MEDS: Carvedilol 6.25 MG TAB PO SCH ×2 (08:42→21:05)
[2019-01-08] MEDS: Loratadine 10 MG TAB PO SCH (08:43)
[2019-01-08] MEDS: Colchicine 0.6 MG TAB PO SCH (08:43)
[2019-01-08] MEDS: Apixaban 5 MG TAB PO SCH ×2 (08:43→21:05)
[2019-01-08] MEDS: Clopidogrel Bisulfate 75 MG TAB PO SCH (08:44)
[2019-01-08] MEDS: Amlodipine 5 MG TAB PO SCH (08:45)
[2019-01-08] MEDS: Polyethylene Glycol 3350 17 GM Packet PO SCH (08:46)
[2019-01-08] MEDS: Nystatin Powder 15 GM BOT TOP SCH ×2 (08:46→21:06)
--- NOTE | 2019-01-08 15:01 | PRG ---
DATE OF SERVICE: 01/08/2019 SUBJECTIVE: Mr. Neves is a very pleasant 68-year-old white male, who had altered mental status, was brought to emergency room and found to be septic. He developed paroxysmal atrial fibrillation along with his pneumonia. He gradually improved and was stabilized and was transferred to [facility] for physical therapy, occupational therapy, and pain management. The patient states his knee still is a little bit of a problem. He states he did not walk as well as he did yesterday because I think he thinks he is just pretty tired today. He did walk 35 to 40 feet several times. OBJECTIVE: VITAL SIGNS: Reveal blood pressure , pulse 69, respirations 16, O2 saturation 94% on room air, T-max 98.0. GENERAL: This is a well-developed, well-nourished, very tall, 68-year-old white male, in no apparent distress at this time. HEENT: Reveals normocephalic and nontraumatic cranium. Pupils are equal, round, and reactive. Extraocular movements are intact. Nose and throat are moist. NECK: Supple without masses, nodes, or bruits. CHEST: Clear to auscultation. No rales, rhonchi, wheezes, or cough is heard. HEART: Reveals a regular rate and rhythm without murmurs, gallops, or rubs. ABDOMEN: Soft and nontender without organomegaly. Normal bowel sounds seen in all 4 quadrants. No rebound or guarding is noted. : Deferred. EXTREMITIES: Reveal no clubbing, cyanosis, or edema. ASSESSMENT: 1. Resolved pneumonia. 2. Paroxysmal atrial tachycardia. 3. BPH. 4. Coronary artery disease. 5. Critical illness myopathy. 6. Gout which is still active in his right lateral knee is somewhat red and warm. 7. Previous elevated troponin, thought to be strain. 8. Hyperlipidemia. 9. hypertension. 10. Gastroesophageal reflux disease. 11. Leukopenia. 12. Generalized weakness. PLAN: 1. Continue name brand colchicine daily. 2. Continue to monitor the patient's blood pressure closely and adjust medications as needed. 3. Monitor the patient for PAT. 4. Continue Plavix and Eliquis per Dr. Weiner's recommendation. 5. Continue PT and OT. Job ID: [id number]
[2019-01-08] MEDS: Acetaminophen 500 MG TAB PO PRN ×2 (15:09→22:10)
[2019-01-08] MEDS: Atorvastatin Calcium 20 MG TAB PO SCH (21:05)
[2019-01-09] MEDS: Baclofen 10 MG TAB PO SCH ×2 (08:44→20:57)
[2019-01-09] MEDS: Amlodipine 5 MG TAB PO SCH (08:44)
[2019-01-09] MEDS: Apixaban 5 MG TAB PO SCH ×2 (08:44→20:57)
[2019-01-09] MEDS: Colchicine 0.6 MG TAB PO SCH (08:45)
[2019-01-09] MEDS: Carvedilol 6.25 MG TAB PO SCH ×2 (08:45→20:57)
[2019-01-09] MEDS: Clopidogrel Bisulfate 75 MG TAB PO SCH (08:45)
[2019-01-09] MEDS: guaiFENesin ER 600 MG TAB PO SCH ×2 (08:46→20:57)
[2019-01-09] MEDS: Polyethylene Glycol 3350 17 GM Packet PO SCH (08:46)
[2019-01-09] MEDS: Nystatin Powder 15 GM BOT TOP SCH ×2 (08:46→20:57)
[2019-01-09] MEDS: Loratadine 10 MG TAB PO SCH (08:46)
[2019-01-09] MEDS: Digoxin 0.125 MG TAB PO SCH (08:46)
[2019-01-09] MEDS: Tamsulosin HCl 0.4 MG CAP PO SCH (08:47)
--- NOTE | 2019-01-09 16:10 | PRG ---
DATE OF SERVICE: 01/09/2019 SUBJECTIVE: Mr. Neves is resting comfortably. Denies any complaints. His spouse is in the room. Right knee pain seems to be slowly improving. He states he is doing well on the brand-name Colcrys. He apparently is not on any prophylactic medications like allopurinol or Uloric. OBJECTIVE: VITAL SIGNS: He is afebrile. Heart rate 65, respirations 18, oxygen saturation 94% on room air, blood pressure 136/64. CARDIOVASCULAR SYSTEM: S1, S2 plus. RESPIRATORY SYSTEM: Normal vesicular breath sounds. ABDOMEN: Soft, obese, nontender. Bowel sounds heard in all quadrants. EXTREMITIES: Without cyanosis or clubbing. Evidence for gout with tophi in his hands. There is minimal erythema to the lateral aspect of his right knee. CENTRAL NERVOUS SYSTEM: He is A and O x3. Generalized weakness. IMPRESSION: 1. Coronary artery disease. 2. Hypertension. 3. Paroxysmal atrial fibrillation. 4. Gastroesophageal reflux disease. 5. Dyslipidemia. 6. History of hepatitis. 7. Gastroesophageal reflux disease. 8. History of cerebrovascular accident with residual right-sided weakness. 9. Gout. 10. Resolving pneumonitis. PLAN: 1. Continue current medications. 2. Nutritional support with heart healthy diet. 3. Monitor blood pressure and adjust medications as needed. 4. Monitor for any decompensation of heart disease. 5. Monitor heart rate and rhythm. 6. Deep vein thrombosis and stress ulcer prophylaxis. 7. Decubitus precautions. 8. Physical therapy. 9. Routine laboratory values. 10. I advised the patient and to think about prophylactic medications for his gout like allopurinol or Uloric. Job ID: [id number]
[2019-01-09] MEDS: Atorvastatin Calcium 20 MG TAB PO SCH (20:57)
[2019-01-10] MEDS: Acetaminophen 500 MG TAB PO PRN (00:04)
[2019-01-10] MEDS: Amlodipine 5 MG TAB PO SCH (09:28)
[2019-01-10] MEDS: Baclofen 10 MG TAB PO SCH ×2 (09:29→21:17)
[2019-01-10] MEDS: Apixaban 5 MG TAB PO SCH ×2 (09:29→21:17)
[2019-01-10] MEDS: Carvedilol 6.25 MG TAB PO SCH ×2 (09:29→21:17)
[2019-01-10] MEDS: Clopidogrel Bisulfate 75 MG TAB PO SCH (09:30)
[2019-01-10] MEDS: Polyethylene Glycol 3350 17 GM Packet PO SCH (09:30)
[2019-01-10] MEDS: Tamsulosin HCl 0.4 MG CAP PO SCH (09:30)
[2019-01-10] MEDS: Colchicine 0.6 MG TAB PO SCH (09:30)
[2019-01-10] MEDS: guaiFENesin ER 600 MG TAB PO SCH ×2 (09:31→21:17)
[2019-01-10] MEDS: Digoxin 0.125 MG TAB PO SCH (09:31)
[2019-01-10] MEDS: Nystatin Powder 15 GM BOT TOP SCH ×2 (09:32→21:18)
[2019-01-10] MEDS: Loratadine 10 MG TAB PO SCH (09:32)
[2019-01-10] MEDS: Atorvastatin Calcium 20 MG TAB PO SCH (21:17)
[2019-01-11] MEDS: Loratadine 10 MG TAB PO SCH (08:26)
[2019-01-11] MEDS: Acetaminophen 500 MG TAB PO PRN (08:26)
[2019-01-11] MEDS: Clopidogrel Bisulfate 75 MG TAB PO SCH (08:26)
[2019-01-11] MEDS: Carvedilol 6.25 MG TAB PO SCH ×2 (08:26→17:04)
[2019-01-11] MEDS: Digoxin 0.125 MG TAB PO SCH (08:26)
[2019-01-11] MEDS: guaiFENesin ER 600 MG TAB PO SCH ×2 (08:27→19:33)
[2019-01-11] MEDS: Baclofen 10 MG TAB PO SCH ×2 (08:27→19:33)
[2019-01-11] MEDS: Nystatin Powder 15 GM BOT TOP SCH ×2 (08:27→19:33)
[2019-01-11] MEDS: Tamsulosin HCl 0.4 MG CAP PO SCH (08:27)
[2019-01-11] MEDS: Polyethylene Glycol 3350 17 GM Packet PO SCH (08:27)
[2019-01-11] MEDS: Apixaban 5 MG TAB PO SCH ×2 (08:27→19:32)
[2019-01-11] MEDS: Amlodipine 5 MG TAB PO SCH (08:27)
[2019-01-11] MEDS: traMADol HCl 50 MG TAB PO PRN (08:28)
[2019-01-11] MEDS: Colchicine 0.6 MG TAB PO SCH (08:28)
[2019-01-11] MEDS: Atorvastatin Calcium 20 MG TAB PO SCH (19:33)
--- NOTE | 2019-01-11 21:59 | PRG ---
DATE OF SERVICE: SUBJECTIVE: Mr. Neves is a very pleasant 68-year-old white male who had significantly altered mental status. He was brought to the emergency room, and found to be septic. He had pneumonia and possibly urinary tract infection. He developed paroxysmal atrial fibrillation. Eventually, he was treated and stabilized and transferred to [facility] for PT and OT and pain management. The patient has recently had a gout attack and states his pain is improving. He did get up and walk a bit better today. He states he had a good rest over the weekend, so he is hopeful he will walk better. OBJECTIVE: VITAL SIGNS: This morning, reveal blood pressure 121/71, pulse 67 to 71, respirations 18, O2 saturation 99% on room air. T-max 97.5. GENERAL: This is a well-developed, well-nourished, very pleasant 68-year-old white male, in no apparent distress at this time. HEENT: Normocephalic and nontraumatic cranium. Pupils equal, round, reactive. Extraocular movements are intact. Nose and throat are slightly dry but clear. NECK: Supple without masses, nodes, or bruits. CHEST: Clear to auscultation. No rales, rhonchi, wheezes, or cough is heard. HEART: Reveals a regular rate and rhythm without murmurs, gallops, or rubs. ABDOMEN: Soft, nontender without organomegaly. Normal bowel sounds are noted in all 4 quadrants. No rebound or guarding is noted. : Deferred. EXTREMITIES: Reveal no clubbing, cyanosis, or edema. ASSESSMENT: 1. Resolved pneumonia. 2. Generalized weakness. 3. Paroxysmal atrial tachycardia. 4. Benign prostatic hyperplasia. 5. Coronary artery disease. 6. Critical illness myopathy. 7. Gout, which is active in his right lateral knee. 8. Previously elevated troponin, thought to be strain. 9. Hyperlipidemia. 10. Hypertension. 11. Gastroesophageal reflux disease. 12. Leukopenia. 13. Generalized weakness. PLAN: 1. Continue present medications. 2. Continue to monitor the patient's blood pressure closely. 3. Adjust medications as needed. 4. Monitor the patient for PAT. 5. Continue Plavix and Eliquis per Dr. Weiner's recommendations. 6. Continue PT and OT. Job ID: [id number]
[2019-01-12] MEDS: Clopidogrel Bisulfate 75 MG TAB PO SCH (08:51)
[2019-01-12] MEDS: Baclofen 10 MG TAB PO SCH ×2 (08:51→20:48)
[2019-01-12] MEDS: Loratadine 10 MG TAB PO SCH (08:51)
[2019-01-12] MEDS: Apixaban 5 MG TAB PO SCH ×2 (08:51→20:48)
[2019-01-12] MEDS: Carvedilol 6.25 MG TAB PO SCH ×2 (08:51→17:44)
[2019-01-12] MEDS: Amlodipine 5 MG TAB PO SCH (08:51)
[2019-01-12] MEDS: Tamsulosin HCl 0.4 MG CAP PO SCH (08:51)
[2019-01-12] MEDS: Digoxin 0.125 MG TAB PO SCH (08:52)
[2019-01-12] MEDS: guaiFENesin ER 600 MG TAB PO SCH ×2 (08:52→20:48)
[2019-01-12] MEDS: Acetaminophen 500 MG TAB PO PRN (08:52)
[2019-01-12] MEDS: Nystatin Powder 15 GM BOT TOP SCH ×2 (08:53→20:48)
[2019-01-12] MEDS: Polyethylene Glycol 3350 17 GM Packet PO SCH (08:53)
[2019-01-12] MEDS: Colchicine 0.6 MG TAB PO SCH (08:53)
[2019-01-12] MEDS: traMADol HCl 50 MG TAB PO PRN (08:55)
--- NOTE | 2019-01-12 14:05 | PRG ---
DATE OF SERVICE: 01/12/2019 SUBJECTIVE: Mr. Neves is a very pleasant 68-year-old white male, who developed altered mental status. He was brought to the emergency room at [facility] and found to be septic. He had pneumonia and also probable urinary tract infection. Developed paroxysmal atrial fib while in the hospital. Eventually, he was stabilized and then he was transferred to [facility] for continued IV care and physical therapy and occupational therapy to increase his strength and stamina. The patient has been bothered by gout, but finally his gout is beginning to resolve. Today, he feels much more strong and ready to go. Yesterday, he walked about 230 feet with several rest, but that is the best he has done in a long time. OBJECTIVE: VITAL SIGNS: Today reveal blood pressure 152/72, next one was 134/67, pulse 77 and 90, respirations 16, T-max 97.7. PHYSICAL EXAMINATION: GENERAL: This is a well-developed, well-nourished, rather tall, thin white male, in no apparent distress at this time. HEENT: Normocephalic and nontraumatic cranium. Pupils are equal, round, reactive. Extraocular movements are intact. Nose and throat are slightly dry but clear. NECK: Supple without masses, nodes, or bruits. CHEST: Clear to auscultation. No rales, rhonchi, wheezes, cough is heard. HEART: Reveals a regular rate and rhythm. No murmurs, gallops, or rubs. ABDOMEN: Soft, nontender without organomegaly. Normal bowel sounds are noted on all four quadrants. No rebound or guarding is noted. : Deferred. EXTREMITIES: Reveal no clubbing, cyanosis, or edema. ASSESSMENT: 1. Resolving pneumonia. 2. Generalized weakness. 3. Paroxysmal atrial tach. 4. Critical illness myopathy. 5. Coronary artery disease. 6. Gout, which is active, mainly in the right lateral knee. 7. Previously elevated troponin thought to be strain. 8. Hypertension. 9. Hyperlipidemia. 10. Gastroesophageal reflux disease. 11. Leukopenia. 12. Generalized weakness. PLAN: 1. Continue present medications. 2. Continue physical therapy and occupational therapy. Encouraged the patient to increase his strength and stamina. 3. Monitor the patient's blood pressure closely and adjust his medications as needed. 4. Continue Plavix and Eliquis per Dr. Weiner's recommendations. Job ID: [id number]
[2019-01-12] MEDS: Atorvastatin Calcium 20 MG TAB PO SCH (20:48)
[2019-01-13] MEDS: Carvedilol 6.25 MG TAB PO SCH ×2 (08:52→16:54)
[2019-01-13] MEDS: Amlodipine 5 MG TAB PO SCH (08:53)
[2019-01-13] MEDS: Apixaban 5 MG TAB PO SCH ×2 (08:54→20:37)
[2019-01-13] MEDS: Colchicine 0.6 MG TAB PO SCH (08:54)
[2019-01-13] MEDS: Baclofen 10 MG TAB PO SCH ×2 (08:54→20:37)
[2019-01-13] MEDS: Clopidogrel Bisulfate 75 MG TAB PO SCH (08:54)
[2019-01-13] MEDS: Digoxin 0.125 MG TAB PO SCH (08:54)
[2019-01-13] MEDS: Tamsulosin HCl 0.4 MG CAP PO SCH (08:55)
[2019-01-13] MEDS: guaiFENesin ER 600 MG TAB PO SCH ×2 (08:55→20:37)
[2019-01-13] MEDS: Loratadine 10 MG TAB PO SCH (08:55)
[2019-01-13] MEDS: Polyethylene Glycol 3350 17 GM Packet PO SCH (08:55)
[2019-01-13] MEDS: Nystatin Powder 15 GM BOT TOP SCH ×2 (09:47→20:37)
--- NOTE | 2019-01-13 14:38 | PRG ---
DATE OF SERVICE: 01/13/2019 SUBJECTIVE: Mr. Neves is a very pleasant 68-year-old white male, who developed altered mental status. He was very weak and was brought to the emergency room at [place] and found to be septic. He had pneumonia and probable urinary tract infection. He did develop paroxysmal atrial fib while in the hospital. Next, he was stabilized and was transferred to [facility]. He was transferred here for continued IV medications, to finish his oral medications, for physical therapy and occupational therapy to increase his strength and stamina. The patient unfortunately had a couple of days where he was unable to do his therapy because his gout had a flare. The patient is back up to his normal self and is much improved. He continues to have some gout pain, but is progressing through his therapy. He states that his insurance only pay through January 15 and we will petition to have that extended. PHYSICAL EXAMINATION: GENERAL: This is a well-developed, well-nourished, tall, thin white male, in no apparent distress at this time. HEENT: Normocephalic and nontraumatic cranium. Pupils equal, round, and reactive. Extraocular movements are intact. Nose and throat are slightly dry, but clear. NECK: Supple without masses, nodes or bruits. CHEST: Clear to auscultation. No rales, rhonchi, wheezes or cough is heard. HEART: Regular rate and rhythm without murmurs, gallops or rubs. ABDOMEN: Soft and nontender without organomegaly. Normal bowel sounds. No rebound or guarding is noted. : Deferred. EXTREMITIES: No clubbing, cyanosis or edema. NEUROLOGIC: The patient still continues with significant weakness. He is able to walk 60 feet and 40 feet, sometime 35 feet, but he is not anywhere near where he was before he got sick. ASSESSMENT: 1. Resolving pneumonia. 2. Generalized weakness. 3. Paroxysmal atrial tachycardia. 4. Critical illness myopathy, much improved. 5. Coronary artery disease. 6. Gout, which is active at this time, mainly lateral knee. 7. Previously elevated troponin, thought to be cardiac strain. 8. Hypertension. 9. Hyperlipidemia. 10. Gastroesophageal reflux disease. 11. Leukopenia. 12. Generalized weakness. PLAN: 1. Continue present medications. 2. Continue colchicine. 3. When the patient's gout pain goes away, we will most likely add allopurinol again or Uloric. 4. Continue physical therapy and occupational therapy. Encourage the patient to increase his strength and stamina. 5. Continue monitor the patient's blood pressure closely. Adjust medications as needed. 6. Continue Plavix and Eliquis per Dr. Weiner's recommendations. Job ID: [id number]
[2019-01-13] MEDS: Atorvastatin Calcium 20 MG TAB PO SCH (20:37)
[2019-01-14] MEDS: Amlodipine 5 MG TAB PO SCH (08:25)
[2019-01-14] MEDS: Carvedilol 6.25 MG TAB PO SCH ×2 (08:25→16:49)
[2019-01-14] MEDS: Apixaban 5 MG TAB PO SCH ×2 (08:25→21:01)
[2019-01-14] MEDS: Baclofen 10 MG TAB PO SCH ×2 (08:26→21:01)
[2019-01-14] MEDS: Digoxin 0.125 MG TAB PO SCH (08:26)
[2019-01-14] MEDS: Clopidogrel Bisulfate 75 MG TAB PO SCH (08:26)
[2019-01-14] MEDS: Colchicine 0.6 MG TAB PO SCH (08:26)
[2019-01-14] MEDS: guaiFENesin ER 600 MG TAB PO SCH ×2 (08:27→21:01)
[2019-01-14] MEDS: Loratadine 10 MG TAB PO SCH (08:27)
[2019-01-14] MEDS: Tamsulosin HCl 0.4 MG CAP PO SCH (08:27)
[2019-01-14] MEDS: Polyethylene Glycol 3350 17 GM Packet PO SCH (08:29)
[2019-01-14] MEDS: Nystatin Powder 15 GM BOT TOP SCH ×2 (08:30→21:01)
--- NOTE | 2019-01-14 14:04 | PRG ---
DATE OF SERVICE: 01/14/2019 SUBJECTIVE: Mr. Neves is a very pleasant 68-year-old white male, who developed altered mental status and generalized weakness. He was taken to [facility], found to be septic from pneumonia, probable urinary tract infection. He also developed paroxysmal atrial fib while he was in the hospital. The patient was stabilized, transferred to [facility]. On transfer, he was transferred here for PT and OT and to increase his strength and stamina. Unfortunately, a couple days after he arrived. He had a gout flare which significantly incapacitated his physical therapy and occupational therapy. He was restarted on his Colcrys and as of Friday, is up and doing things again. PHYSICAL EXAMINATION: GENERAL: This is a well-developed, well-nourished, very pleasant white male, in no apparent distress at this time. HEENT: Normocephalic and nontraumatic cranium. Pupils are equally round and reactive. Extraocular movements are intact. Nose and throat are slightly dry. NECK: Supple without masses, nodes, or bruits. CHEST: Clear to auscultation. No rales, rhonchi, wheezes, or cough is heard. HEART: Reveals a regular rate and rhythm without murmurs, gallops, or rubs. ABDOMEN: Soft, nontender without organomegaly. Normal bowel sounds are noted in all 4 quadrants. No rebound or guarding is noted. : Deferred. EXTREMITIES: Reveal no clubbing, cyanosis, or edema. Just generalized weakness. NEUROLOGIC: The patient still continues with significant weakness, but he is able to walk a little further and he is less unstable. He is not walking anywhere near the 680 feet that he was when he was doing his "prayer laps. ASSESSMENT: 1. Resolving pneumonia. 2. Generalized weakness. 3. Paroxysmal atrial tach. 4. Gouty arthritis attack. 5. Critical illness myopathy, much improved. 6. Coronary artery disease. 7. Elevated troponin thought to be cardiac strain. 8. Hypertension. 9. Hyperlipidemia. 10. Gastroesophageal reflux. 11. Leukopenia. 12. Generalized weakness. PLAN: 1. Continue present medication. 2. Continue colchicine and when the patient's pain is significantly approximately two weeks, we will restart his allopurinol. 3. Continue PT and OT. 4. Encourage the patient to increase his strength. 5. Continue monitor the patient's blood pressure closely and adjust medications as needed. 6. Continue Plavix and Eliquis. 7. File for a repetition for a review to extend the patient's hospitalization. Job ID: [id number]
[2019-01-14] MEDS: Atorvastatin Calcium 20 MG TAB PO SCH (21:01)
[2019-01-15] MEDS: traMADol HCl 50 MG TAB PO PRN (09:12)
[2019-01-15] MEDS: guaiFENesin ER 600 MG TAB PO SCH ×2 (09:12→20:58)
[2019-01-15] MEDS: Apixaban 5 MG TAB PO SCH ×2 (09:12→20:58)
[2019-01-15] MEDS: Amlodipine 5 MG TAB PO SCH (09:13)
[2019-01-15] MEDS: Acetaminophen 500 MG TAB PO PRN (09:13)
[2019-01-15] MEDS: Loratadine 10 MG TAB PO SCH (09:13)
[2019-01-15] MEDS: Digoxin 0.125 MG TAB PO SCH (09:13)
[2019-01-15] MEDS: Baclofen 10 MG TAB PO SCH ×2 (09:13→20:58)
[2019-01-15] MEDS: Clopidogrel Bisulfate 75 MG TAB PO SCH (09:13)
[2019-01-15] MEDS: Tamsulosin HCl 0.4 MG CAP PO SCH (09:13)
[2019-01-15] MEDS: Colchicine 0.6 MG TAB PO SCH (09:14)
[2019-01-15] MEDS: Carvedilol 6.25 MG TAB PO SCH ×2 (09:14→17:06)
--- NOTE | 2019-01-15 10:25 | PRG ---
DATE OF SERVICE: 01/15/2019 SUBJECTIVE: Mr. Neves is a very pleasant 68-year-old white male, who was septic and was brought to [facility], found to be sepsis from pneumonia and urinary tract infection. He also developed paroxysmal atrial fib, while he was there. He was extremely weak and was transferred to [facility] for PT and OT. Unfortunately, several days after he arrived, he had a gout flare, which put him to bed and incapacitated him. He is doing much better. I did see him walk about 200 feet today. He is very slow, but he is much better. Before he was sick, he was walking 680 feet three times a day without stopping. He called those his play rounds. PHYSICAL EXAMINATION: VITAL SIGNS: Today reveal blood pressure 133/69, pulse 68, respirations 18, O2 saturation 96% on room air. T-max 98.2. GENERAL: This is a well-developed, well-nourished, weak, but much improved white male, in no apparent distress at this time. HEENT: Normocephalic and nontraumatic cranium. Pupils equal, round, reactive. Extraocular movements are intact. Nose and throat are slightly dry. NECK: Supple without masses, nodes, or bruits. CHEST: Clear on auscultation. No rales, rhonchi, wheezes, or cough is heard. HEART: Reveals a regular rate and rhythm without murmurs, gallops, or rubs. ABDOMEN: Slightly obese, soft, nontender without organomegaly. Normal bowel sounds are noted. No rebound or guarding is noted. : Deferred. EXTREMITIES: Reveal no clubbing, cyanosis, or edema. Just plain generalized weakness. NEUROLOGIC: The patient has continued weakness, but he is much improved. ASSESSMENT: 1. Resolved pneumonia. 2. Generalized weakness. 3. Paroxysmal atrial tach. 4. Critical illness myopathy, much improved. 5. Gouty arthritis attack, improving. 6. Coronary artery disease. 7. Elevated troponin, thought to be cardiac strain. 8. Hypertension. 9. Hyperlipidemia. 10. Gastroesophageal reflux disease. 11. Leukopenia. 12. Generalized weakness. PLAN: 1. Continue present medication. 2. Continue colchicine and when the patient's pain abates, we will start his allopurinol. 3. Continue PT and OT. 4. Continue to encourage the patient to increase his strength by staying up out of bed as much as possible. 5. Continue to monitor the patient's blood pressure and adjust medications as needed. 6. Continue Plavix and Eliquis per Dr. Weiner's recommendation. 7. Petition the patient to review and extend the patient's hospitalization for PT and OT. Job ID: [id number]
[2019-01-15] MEDS: Polyethylene Glycol 3350 17 GM Packet PO SCH (10:53)
[2019-01-15] MEDS: Nystatin Powder 15 GM BOT TOP SCH ×2 (10:53→20:58)
[2019-01-15] MEDS: Atorvastatin Calcium 20 MG TAB PO SCH (20:58)
[2019-01-16] MEDS: Clopidogrel Bisulfate 75 MG TAB PO SCH (09:01)
[2019-01-16] MEDS: Tamsulosin HCl 0.4 MG CAP PO SCH (09:01)
[2019-01-16] MEDS: Amlodipine 5 MG TAB PO SCH (09:01)
[2019-01-16] MEDS: Baclofen 10 MG TAB PO SCH (09:01)
[2019-01-16] MEDS: Carvedilol 6.25 MG TAB PO SCH (09:01)
[2019-01-16] MEDS: guaiFENesin ER 600 MG TAB PO SCH (09:01)
[2019-01-16] MEDS: Digoxin 0.125 MG TAB PO SCH (09:01)
[2019-01-16] MEDS: Apixaban 5 MG TAB PO SCH (09:02)
[2019-01-16] MEDS: Loratadine 10 MG TAB PO SCH (09:02)
[2019-01-16] MEDS: Colchicine 0.6 MG TAB PO SCH (09:04)
[2019-01-16 10:58] VITALS: BP 137/69; TEMP 97.4
== END 2019-01-16 16:45 | disposition home or self-care (01) | DRG 947 ==
LOC: NAV ACUTE 18:15
PROVIDERS: ADMIT Family Medicine; ATTEND Family Medicine
DX: R53.1 Weakness (principal); J18.9 Pneumonia, unspecified organism; I69.351 Hemiplegia and hemiparesis following cerebral infarction affecting right dominant side; G72.81 Critical illness myopathy; M10.061 Idiopathic gout, right knee; I25.10 Atherosclerotic heart disease of native coronary artery without angina pectoris; I10 Essential (primary) hypertension; M19.90 Unspecified osteoarthritis, unspecified site; K21.9 Gastro-esophageal reflux disease without esophagitis; N40.0 Benign prostatic hyperplasia without lower urinary tract symptoms; E78.5 Hyperlipidemia, unspecified; D72.819 Decreased white blood cell count, unspecified; I48.0 Paroxysmal atrial fibrillation; Z87.442 Personal history of urinary calculi; Z86.19 Personal history of other infectious and parasitic diseases; Z88.1 Allergy status to other antibiotic agents; Z88.8 Allergy status to other drugs, medicaments and biological substances; Z79.01 Long term (current) use of anticoagulants; Z79.02 Long term (current) use of antithrombotics/antiplatelets; Z79.899 Other long term (current) drug therapy; Z95.1 Presence of aortocoronary bypass graft
CPT/HCPCS: 36415; 80053; 80162; 81001; 85025